=== PATIENT | male | born 1960 ===

== ENCOUNTER 2020-10-13 06:06 | Inpatient (IN) ==
[~2020-10-13 06:06] MED LIST: Buffered Lidocaine 1% SYRIN 1 ml INTRADERM ONE; Lactated Ringers 1000 ml BAG 1,000 ML IV SCH
[2020-10-13] MEDS ORDERED: Buffered Lidocaine 1% SYRIN 1 ml INTRADERM ONE (06:42)
[2020-10-13] MEDS ORDERED: Sevoflurane BOTTLE ONE (06:47)
[2020-10-13] MEDS ORDERED: Midazolam 2 mg/2 ml VIAL 1 mg/ml 2 ml VIAL (2 mg) ONE (06:50)
[2020-10-13] MEDS ORDERED: Rocuronium 50 mg VIAL 10 mg/ml 5 ml VIAL (50 mg) ONE ×3 (06:50→11:38)
[2020-10-13] MEDS ORDERED: Ondansetron 4 mg VIAL 2 MG/ML 2 ml VIAL ONE (06:50)
[2020-10-13] MEDS ORDERED: Propofol 10 MG/ML 20 ML BTL ONE (06:50)
[2020-10-13] MEDS ORDERED: fentaNYL 250 mcg/5 ml 50 MCG/ML 5 ml VIAL (250 MCG) ONE (06:50)
[2020-10-13] MEDS ORDERED: Dexamethasone IV 4 MG/ML VIAL 1 ml VIAL ONE (06:52)
[2020-10-13] MEDS ORDERED: Lidocaine 2% PF 5 ML VIAL ONE (06:59)
[2020-10-13] MEDS ORDERED: Bupivacaine 0.25% SDV 30 ML ONE (07:04)
[2020-10-13] MEDS ORDERED: ceFOXitin 2 GM IVPREMIX 2 GM/50 ML BAG ONE ×2 (07:18→12:44)
[2020-10-13] MEDS ORDERED: Acetaminophen IV 1 GM/100ML 100 ML ONE (08:17)
[2020-10-13] MEDS ORDERED: Phenylephrine 40 mcg/mL 10mL (400mcg) SYRINGE ONE (09:15)
[2020-10-13] MEDS ORDERED: Prochlorperazine 5 mg/ml 2 ml VIAL (10 mg) IV PRN (10:23)
[2020-10-13] MEDS ORDERED: Naloxone 0.4 mg VIAL 0.4 mg/ml 1 ml VIAL IV PRN (10:23)
[2020-10-13] MEDS ORDERED: diPHENhydraMINE IV 50 MG/ML 1 ml VIAL (BENADRYL) IV PRN (10:23)
[2020-10-13] MEDS ORDERED: HYDROmorphone 1 MG/1 ML SYRINGE ONE ×3 (12:02→12:47)
[2020-10-13] MEDS ORDERED: Bacitracin OINTMENT TUBE ONE (12:15)
[2020-10-13] MEDS ORDERED: HYDROmorphone 1 MG/1 ML SYRINGE IV SLOW PU PRN (12:32)
[2020-10-13] MEDS: HYDROmorphone 1 MG/1 ML SYRINGE IV PRN ×5 (12:49→13:16)
[2020-10-13] MEDS ORDERED: fentaNYL 100 mcg/2 ml 50 MCG/ML VIAL ONE ×2 (13:14→13:30)
[2020-10-13] MEDS: fentaNYL 100 mcg/2 ml 50 MCG/ML VIAL IV PRN ×3 (13:18→13:46)
[2020-10-13] MEDS ORDERED: Naloxone 0.4 mg VIAL 0.4 mg/ml 1 ml VIAL IV PUSH PRN (13:36)
[2020-10-13] MEDS: Lactated Ringers 1000 ml BAG 1,000 ML IVPB SCH (15:06)
[2020-10-13] MEDS ORDERED: HYDROmorphone 0.5 MG/0.5 ML SYRINGE IV SLOW PU ONE (17:00)
[2020-10-13] MEDS: HYDROmorphone PCA 20 MG/20 ML PCA.SYRING PCA SCH (17:15)
[2020-10-13] MEDS: Ondansetron 4 mg VIAL 2 MG/ML 2 ml VIAL IV PRN (19:16)
[2020-10-14] MEDS: Lactated Ringers 1000 ml BAG 1,000 ML IVPB SCH ×3 (01:32→21:55)
[2020-10-14] MEDS: Ondansetron 4 mg VIAL 2 MG/ML 2 ml VIAL IV PRN ×2 (03:08→08:01)
[2020-10-14 06:32] LABS: ABS Lymphocytes 0.9 10^3/ul (1.0-4.8); ABS Monocytes 1.5 10^3/ul (0-0.8); ABS Neutrophils 8.4 10^3/ul (1.5-7.7); Eosinophil % 0.1 %; Hematocrit 42 % (42-52); Hemoglobin 14.3 g/dL (14.0-18.0); Lymphocyte % 8.1 %; Mean Corpuscular HGB Conc 34 g/dL (31-36); Mean Corpuscular Hemoglobin 30 pg (27-31); Mean Corpuscular Volume 89 fL (80-94); Mean Platelet Volume 7.9 fL (7.4-10.4); Platelet Count 258 10^3/uL (150-450); Red Blood Count 4.73 10^6 /uL (4.18-5.48); Red Cell Distribution Width 13 % (10-15); White Blood Count 10.8 10^3/uL (3.5-10.8)
[2020-10-14 06:53] LABS: BUN/Creatinine Ratio 15.6 (8-20); Calcium 9.2 mg/dL (8.6-10.3); EGFR Non-African American 79.4 (>60); Potassium 4.2 mmol/L (3.5-5.0)
[2020-10-14] MEDS: Pantoprazole VIAL 40 MG VIAL IV SCH (10:24)
[2020-10-14] MEDS: HYDROmorphone PCA 20 MG/20 ML PCA.SYRING PCA SCH (13:04)
[2020-10-15 05:15] LABS: ABS Eosinophils 0.2 10^3/ul (0-0.6); ABS Lymphocytes 1.3 10^3/ul (1.0-4.8); ABS Monocytes 1.3 10^3/ul (0-0.8); ABS Neutrophils 6.3 10^3/ul (1.5-7.7); Eosinophil % 2.1 %; Hematocrit 32 % (42-52); Hemoglobin 11.2 g/dL (14.0-18.0); Lymphocyte % 14.5 %; Mean Corpuscular HGB Conc 35 g/dL (31-36); Mean Corpuscular Hemoglobin 31 pg (27-31); Mean Corpuscular Volume 89 fL (80-94); Nucleated Red Blood Cells % 0.1; Platelet Count 182 10^3/uL (150-450); Red Blood Count 3.61 10^6 /uL (4.18-5.48); Red Cell Distribution Width 13 % (10-15); White Blood Count 9.2 10^3/uL (3.5-10.8)
[2020-10-15 05:39] LABS: BUN/Creatinine Ratio 18.2 (8-20); EGFR African American 92.7 (>60); EGFR Non-African American 76.6 (>60); Potassium 3.9 mmol/L (3.5-5.0)
[2020-10-15] MEDS: Lactated Ringers 1000 ml BAG 1,000 ML IVPB SCH ×2 (07:45→18:14)
[2020-10-15] MEDS: Pantoprazole VIAL 40 MG VIAL IV SCH (10:04)
[2020-10-15] MEDS: Ondansetron 4 mg VIAL 2 MG/ML 2 ml VIAL IV PRN ×2 (12:54→20:50)
[2020-10-16] MEDS: Lactated Ringers 1000 ml BAG 1,000 ML IVPB SCH ×3 (03:58→23:53)
[2020-10-16] MEDS: Pantoprazole VIAL 40 MG VIAL IV SCH (09:35)
[2020-10-16] MEDS: oxyCODONE/Acetamin 5/325 mg TAB PO PRN ×3 (13:13→23:48)
[2020-10-17] MEDS: HYDROmorphone PCA 20 MG/20 ML PCA.SYRING PCA SCH (01:24)
[2020-10-17] MEDS ORDERED: HYDROmorphone 0.5 MG/0.5 ML SYRINGE IV SLOW PU PRN (08:58)
[2020-10-17] MEDS ORDERED: Scopolamine PATCH Remove NOTE PATCH OFF SCH (10:00)
[2020-10-17] MEDS: Pantoprazole VIAL 40 MG VIAL IV SCH (11:22)
[2020-10-17] MEDS: Polyethylene Glycol 3350 17 GM PACKET PO SCH (12:48)
[2020-10-17] MEDS: oxyCODONE/Acetamin 5/325 mg TAB PO PRN ×2 (18:37→22:36)
[2020-10-18 08:55] VITALS: BP 173/83
[2020-10-18] MEDS: Pantoprazole VIAL 40 MG VIAL IV SCH (09:57)
[2020-10-18] MEDS: Polyethylene Glycol 3350 17 GM PACKET PO SCH (09:57)
== END 2020-10-18 12:30 | disposition home or self-care (01) | DRG 221 ==
LOC: AA 06:06 → SSU 14:20
PROVIDERS: ADMIT Surgery; ATTEND Surgery